=== PATIENT | female | born 1955 | race Native Hawaiian/Other Pacific Islander ===

== ENCOUNTER 2019-07-10 08:41 | Day surgery (SDC) | payer BC | END 2019-07-10 09:35 | disposition home or self-care (01) | LOC: OR 08:41 | PROC: 3E0R33Z Introduction of Anti-inflammatory into Spinal Canal, Percutaneous Approach (ICD-10-PCS; principal; 2019-07-10) | PROC: 3E0R3BZ Introduction of Anesthetic Agent into Spinal Canal, Percutaneous Approach (ICD-10-PCS; 2019-07-10) | DX: M53.3 Sacrococcygeal disorders, not elsewhere classified (principal); M46.1 Sacroiliitis, not elsewhere classified | CPT/HCPCS: J1020; J3490 ==

== ENCOUNTER 2020-03-25 08:48 | Day surgery (SDC) | payer BC ==
[~2020-03-25] VITALS: Ht 30.5 cm; Wt 0.5 kg
== END 2020-03-25 09:48 | disposition home or self-care (01) ==
LOC: OR 08:48
PROC: 3E0R33Z Introduction of Anti-inflammatory into Spinal Canal, Percutaneous Approach (ICD-10-PCS; principal; 2020-03-25)
PROC: 3E0R3BZ Introduction of Anesthetic Agent into Spinal Canal, Percutaneous Approach (ICD-10-PCS; 2020-03-25)
DX: M53.3 Sacrococcygeal disorders, not elsewhere classified (principal); M46.1 Sacroiliitis, not elsewhere classified
CPT/HCPCS: J1020; J3490